=== PATIENT | female | born 1980 | race Caucasian/White ===

== ENCOUNTER 2017-07-18 09:58 | Emergency (ER) | payer OTHER ==
[~2017-07-18] VITALS: Ht 152.4 cm; Wt 66.2 kg
[~2017-07-18 09:58] MED LIST: ADULT LOW DOSE81 MG; ANTIVERT25 MG PO; BACTRIM DS TAB1 EACH; BENADRYL25 MG PO; CIPROFLOXACIN500 M1 PO; CLARITIN-D 24 H1 TAB PO; DOXYCYCLINE 10100 M1 PO; DOXYCYCLINE 10100 MG PO; IBUPROFEN 800800 MG PO; KEFLEX500 MG PO; PERCOCET 5-3251 EACH PO; PREDNISONE 20 M20 MG PO; VICODIN 5-5001 EACH PO; ZANTAC 150MG T150 M1 PO
[2017-07-18 11:00] LABS: ABSOLUTE LYMPHOCYTES 2.4 thou/uL (0.8-5.3); ABSOLUTE MONOCYTES 0.8 thou/uL (0.0-1.2); ABSOLUTE NEUTROPHILS 5.3 thou/uL (1.6-8.1); BASOPHILS 0.1 %; EOSINOPHILS 0.4 %; HEMATOCRIT 44.2 % (37.0-47.0); HEMOGLOBIN 14.9 gm/dL (12.0-15.0); LYMPHOCYTES 27.6 %; MCH 27.2 pg (26.0-34.0); MCHC 33.7 g/dL (28.0-37.0); MCV 80.7 fL (80.0-100.0); MONOCYTES 9.5 %; MPV 8.2 fl. (7.2-11.1); NUCLEATED RBCS 0 /100WBC; PLATELET COUNT* 276 thou/uL (150-400); POLYS 62.4 %; RBC 5.47 mil/uL (4.20-5.00); RDW-CV 12.6 % (10.5-14.5); WBC 8.6 thou/uL (4.0-11.0)
[2017-07-18 11:14] LABS: CALCIUM 9.1 mg/dL (8.5-10.1); CREATININE 0.7 mg/dL (0.6-1.3)
[2017-07-18 11:19] LABS: TOTAL BILIRUBIN 1.1 mg/dL (<0.1-1.0); TOTAL PROTEIN 8.1 g/dL (6.4-8.2)
[2017-07-18] MEDS ORDERED: OMEPRAZOLE 20 M20 MG PO (14:02)
[2017-07-18] MEDS ORDERED: CARAFATE 1 GM TA1 GM PO (14:02)
[2017-07-18 14:12] VITALS: BP 119/74
--- NOTE | 2017-07-18 17:46 | EKG ---
[place] [address] ELECTROCARDIOGRAM REPORT Name: BINDU BERG Room: [facility]#: [id number] Admission: 07/18/17 Attend Phys: Discharge: 07/18/17 Date of : 82 Report #: [id number] THIS REPORT FOR: //name// 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 : 1980 Requested By: Nataly Landers Order Number: [id number] MD: Ronak Martines Measurements Intervals [place] Rate: 87 P: 55 WI: 237 QRS: 91 QRSD: 110 T: 80 QT: 355 QTc: 427 Interpretive Statements Sinus rhythm Prolonged WI interval Probable left atrial enlargement Borderline right axis deviation Baseline wander in lead(s) II,III,aVF Compared to ECG 09/22/2016 12:49:19 First degree AV block now present Electronically Signed On 07-18-2017 17:45:56 HEAD [employer]OL[employer] PROFESSIONAL by Ronak Martines [email or web address] <ELECTRONICALLY SIGNED> By: Ronak Martines MD, FACC 07/18/17 1745 1005 1005 Ronak Martines MD, FAC /EPI
== END 2017-07-18 14:13 | disposition home or self-care (01) ==
LOC: M.ERS 09:58
PROVIDERS: Personal Emergency Response Attendant
DX: R07.89 Other chest pain (principal); Z88.2 Allergy status to sulfonamides; Z88.1 Allergy status to other antibiotic agents

== ENCOUNTER 2018-08-11 15:14 | Emergency (ER) | payer OTHER ==
[~2018-08-11] VITALS: Ht 152.4 cm; Wt 71.2 kg
[~2018-08-11 15:14] MED LIST changes: +CARAFATE 1 GM TA1 GM PO; +OMEPRAZOLE 20 M20 MG PO
[2018-08-11] MEDS ORDERED: PRENATAL PO (15:28)
[2018-08-11 15:51] LABS: URINE BILIRUBIN NEGATIVE (Negative); URINE BLOOD 3+ (Negative); URINE CLARITY CLEAR; URINE COLOR STRAW; URINE GLUCOSE-RANDOM NEGATIVE (Negative); URINE KETONES NEGATIVE (Negative); URINE LEUKOCYTES-REFLEX NEGATIVE (Negative); URINE NITRITE-REFLEX NEGATIVE (Negative); URINE PROTEIN NEGATIVE (Negative); URINE UROBILINOGEN 0.2 E.U./dl (0.2-1.0)
[2018-08-11 15:58] LABS: SQUAMOUS 4-10 Moderate /LPF (0-3)
[2018-08-11 15:59] LABS: BACTERIA-REFLEX 1-9 Few /HPF (None Seen); CASTS None Seen /LPF (None Seen); CRYSTALS None Seen /LPF (None Seen); MUCUS None Seen strn/LPF (None Seen); URINE RBC 3-10 Few /HPF (0-2); URINE WBC-REFLEX 0-5 Rare /HPF (0-5)
[2018-08-11 16:11] LABS: ABSOLUTE LYMPHOCYTES 2.3 thou/uL (0.8-5.3); ABSOLUTE MONOCYTES 0.9 thou/uL (0.0-1.2); ABSOLUTE NEUTROPHILS 6.1 thou/uL (1.6-8.1); BASOPHILS 0.4 %; EOSINOPHILS 0.2 %; HEMATOCRIT 40.5 % (37.0-47.0); HEMOGLOBIN 13.4 gm/dL (12.0-15.0); LYMPHOCYTES 24.6 %; MCH 26.9 pg (26.0-34.0); MCV 81.5 fL (80.0-100.0); MPV 8.1 fl. (7.2-11.1); NUCLEATED RBCS 0 /100WBC; PLATELET COUNT* 280 thou/uL (150-400); POLYS 64.8 %; RBC 4.97 mil/uL (4.20-5.00); RDW-CV 12.5 % (10.5-14.5); WBC 9.4 thou/uL (4.0-11.0)
[2018-08-11 16:17] LABS: CALCIUM 9.3 mg/dL (8.5-10.1); CREATININE 0.6 mg/dL (0.6-1.3); POTASSIUM 3.7 mmol/L (3.5-5.1)
[2018-08-11 16:22] LABS: ALBUMIN 3.5 g/dL (3.4-5.0); TOTAL BILIRUBIN 0.3 mg/dL (<0.1-1.0); TOTAL PROTEIN 7.5 g/dL (6.4-8.2)
[2018-08-11 19:59] VITALS: BP 112/62
== END 2018-08-11 19:59 | disposition home or self-care (01) ==
LOC: M.ERS 15:14
PROVIDERS: Nurse Practitioner Family
DX: O46.91 Antepartum hemorrhage, unspecified, first trimester (principal); Z3A.12 12 weeks gestation of pregnancy; Z88.2 Allergy status to sulfonamides; Z88.8 Allergy status to other drugs, medicaments and biological substances

== ENCOUNTER 2018-11-28 23:40 | Emergency (ER) | payer OTHER, MEDICAID ==
[~2018-11-28] VITALS: Ht 152.4 cm; Wt 72.6 kg
[~2018-11-28 23:40] MED LIST changes: +PRENATAL PO
[2018-11-28] MEDS ORDERED: ASPIR 8181 MG PO (23:51)
[2018-11-29 00:07] LABS: ABSOLUTE BASOPHILS 0.1 thou/uL (0.0-0.2); ABSOLUTE LYMPHOCYTES 2.8 thou/uL (0.8-5.3); ABSOLUTE NEUTROPHILS 6.7 thou/uL (1.6-8.1); BASOPHILS 0.7 %; EOSINOPHILS 0.4 %; HEMOGLOBIN 12.4 gm/dL (12.0-15.0); LYMPHOCYTES 26.2 %; MCH 26.8 pg (26.0-34.0); MCHC 33.6 g/dL (28.0-37.0); MCV 79.8 fL (80.0-100.0); MONOCYTES 9.8 %; MPV 8.1 fl. (7.2-11.1); NUCLEATED RBCS 0 /100WBC; PLATELET COUNT* 238 thou/uL (150-400); POLYS 62.9 %; RBC 4.64 mil/uL (4.20-5.00); RDW-CV 13.1 % (10.5-14.5); WBC 10.6 thou/uL (4.0-11.0)
[2018-11-29 00:16] LABS: CALCIUM 9.3 mg/dL (8.5-10.1); CREATININE 0.4 mg/dL (0.6-1.3); POTASSIUM 3.5 mmol/L (3.5-5.1)
[2018-11-29 00:20] LABS: ALBUMIN 2.9 g/dL (3.4-5.0); TOTAL BILIRUBIN 0.7 mg/dL (<0.1-1.0); TOTAL PROTEIN 7.1 g/dL (6.4-8.2)
[2018-11-29 00:41] LABS: URINE BILIRUBIN NEGATIVE (Negative); URINE BLOOD NEGATIVE (Negative); URINE CLARITY CLEAR; URINE COLOR YELLOW; URINE GLUCOSE-RANDOM NEGATIVE (Negative); URINE KETONES 2+ (Negative); URINE LEUKOCYTES-REFLEX NEGATIVE (Negative); URINE NITRITE-REFLEX NEGATIVE (Negative); URINE PROTEIN NEGATIVE (Negative); URINE SPECIFIC GRAVITY 1.025 (1.005-1.030)
[2018-11-29 01:05] VITALS: BP 114/73
== END 2018-11-29 01:08 | disposition short-term general hospital (02) ==
LOC: M.ERS 23:40
PROVIDERS: Personal Emergency Response Attendant
DX: O26.892 Other specified pregnancy related conditions, second trimester (principal); Z88.2 Allergy status to sulfonamides; Z88.8 Allergy status to other drugs, medicaments and biological substances; Z3A.27 27 weeks gestation of pregnancy

== ENCOUNTER 2019-10-04 11:35 | Emergency (ER) | payer OTHER, MEDICAID ==
[~2019-10-04] VITALS: Ht 152.4 cm; Wt 72.1 kg
[~2019-10-04 11:35] MED LIST changes: +ASPIR 8181 MG PO
[2019-10-04 12:09] LABS: ABSOLUTE LYMPHOCYTES 2.6 thou/uL (0.8-5.3); ABSOLUTE MONOCYTES 0.9 thou/uL (0.0-1.2); BASOPHILS 0.5 %; EOSINOPHILS 0.3 %; HEMATOCRIT 44.3 % (37.0-47.0); LYMPHOCYTES 34.4 %; MCH 27.4 pg (26.0-34.0); MCV 80.7 fL (80.0-100.0); MONOCYTES 12.2 %; NUCLEATED RBCS 0 /100WBC; PLATELET COUNT* 296 thou/uL (150-400); POLYS 52.6 %; RBC 5.49 mil/uL (4.20-5.00); RDW-CV 12.2 % (10.5-14.5); WBC 7.6 thou/uL (4.0-11.0)
[2019-10-04 12:16] LABS: CALCIUM 8.9 mg/dL (8.5-10.1); CREATININE 0.6 mg/dL (0.6-1.3); POTASSIUM 3.8 mmol/L (3.5-5.1)
[2019-10-04 12:20] LABS: APTT 26.4 Seconds (25.0-31.3); PROTIME 10.6 Seconds (9.20-11.50)
[2019-10-04 12:30] LABS: ALBUMIN 4.2 g/dL (3.4-5.0); CK-MB MASS 1.6 ng/mL (<0.5-3.6); MAGNESIUM 1.8 mg/dL (1.8-2.4); TOTAL BILIRUBIN 1.1 mg/dL (<0.1-1.0); TOTAL PROTEIN 8.3 g/dL (6.4-8.2)
[2019-10-04 13:00] VITALS: BP 117/78
--- NOTE | 2019-10-04 14:26 | EKG ---
[place] [address] ELECTROCARDIOGRAM REPORT Name: BINDU BERG Room: [facility]#: [id number] Admission: 10/04/19 Attend Phys: Discharge: 10/04/19 Date of : 82 Date of Service: 10/04/19 1143 Report #: [id number] THIS REPORT FOR: //name// [facility] ED Test Date: 2019-10-04 Test Time: 11:43:34 Pat Name: BINDU BERG Department: Room: Gender: Director Of Blood: : 1980 Requested By: Kun Martinez Order Number: [id number] MD: Arnold Judd Measurements Intervals [place] Rate: 97 P: 86 [place]: 161 QRS: -69 QRSD: 121 T: 73 QT: 425 QTc: 540 Interpretive Statements Sinus rhythm probable left atrial enlargement Ventricular premature complex Nonspecific IVCD with LAD Left ventricular hypertrophy possible Compared to ECG 07/18/2017 10:05:29 Ventricular premature complex(es) now present Intraventricular conduction delay now present Left ventricular hypertrophy now suggested Electronically Signed On 10-04-2019 14:24:57 CDT by Arnold Judd [email or web address] <ELECTRONICALLY SIGNED> By: Arnold Judd MD, FAC 10/04/19 1424 1143 1143 Arnold Judd MD, FAC /EPI
== END 2019-10-04 13:01 | disposition home or self-care (01) ==
LOC: M.ERS 11:35
PROVIDERS: Family Medicine
DX: R07.89 Other chest pain (principal); Z88.1 Allergy status to other antibiotic agents; Z88.2 Allergy status to sulfonamides

== ENCOUNTER 2019-10-29 11:47 | Emergency (ER) | payer OTHER, MEDICAID ==
[~2019-10-29] VITALS: Ht 152.4 cm; Wt 70.8 kg
[2019-10-29 12:11] LABS: ABSOLUTE LYMPHOCYTES 2.2 thou/uL (0.8-5.3); ABSOLUTE MONOCYTES 0.7 thou/uL (0.0-1.2); ABSOLUTE NEUTROPHILS 5.9 thou/uL (1.6-8.1); BASOPHILS 0.4 %; EOSINOPHILS 0.2 %; HEMATOCRIT 44.3 % (37.0-47.0); LYMPHOCYTES 24.9 %; MCH 27.4 pg (26.0-34.0); MCHC 33.9 g/dL (28.0-37.0); MCV 80.8 fL (80.0-100.0); MONOCYTES 7.8 %; MPV 8.3 fl. (7.2-11.1); NUCLEATED RBCS 0 /100WBC; PLATELET COUNT* 276 thou/uL (150-400); POLYS 66.7 %; RBC 5.48 mil/uL (4.20-5.00); RDW-CV 12.8 % (10.5-14.5); WBC 8.9 thou/uL (4.0-11.0)
[2019-10-29 12:20] LABS: CALCIUM 9.3 mg/dL (8.5-10.1); CREATININE 0.6 mg/dL (0.6-1.3); POTASSIUM 4.6 mmol/L (3.5-5.1)
[2019-10-29 12:24] LABS: ALBUMIN 4.2 g/dL (3.4-5.0); TOTAL BILIRUBIN 0.6 mg/dL (<0.1-1.0); TOTAL PROTEIN 8.3 g/dL (6.4-8.2)
[2019-10-29 12:38] LABS: URINE BILIRUBIN NEGATIVE (Negative); URINE BLOOD NEGATIVE (Negative); URINE CLARITY CLEAR; URINE COLOR YELLOW; URINE GLUCOSE-RANDOM NEGATIVE (Negative); URINE KETONES NEGATIVE (Negative); URINE LEUKOCYTES-REFLEX NEGATIVE (Negative); URINE NITRITE-REFLEX NEGATIVE (Negative); URINE PROTEIN NEGATIVE (Negative); URINE SPECIFIC GRAVITY 1.025 (1.005-1.030); URINE UROBILINOGEN 0.2 E.U./dl (0.2-1.0)
[2019-10-29] MEDS ORDERED: CIPROFLOXACIN500 M1 PO (14:41)
[2019-10-29 14:55] VITALS: BP 125/81
== END 2019-10-29 14:56 | disposition home or self-care (01) ==
LOC: M.ERS 11:47
PROVIDERS: Personal Emergency Response Attendant
DX: R10.31 Right lower quadrant pain (principal); R19.7 Diarrhea, unspecified; Z88.1 Allergy status to other antibiotic agents; Z88.2 Allergy status to sulfonamides